=== PATIENT | male | born 1960 ===

== ENCOUNTER 2023-07-20 05:10 | Day surgery (SDC) | payer OTHER ==
[2023-07-20] MEDS ORDERED: PERCOCET 5-3251 EACH PO (10:08)
[2023-07-20] MEDS ORDERED: RECTICARE30 GM TOP (10:09)
== END 2023-07-20 20:40 | disposition home or self-care (01) ==
LOC: CIR.AMB 05:10
PROVIDERS: ATTEND Surgery
DX: K62.5 Hemorrhage of anus and rectum (principal); K64.8 Other hemorrhoids; K64.1 Second degree hemorrhoids; K64.4 Residual hemorrhoidal skin tags; R19.5 Other fecal abnormalities; Z88.2 Allergy status to sulfonamides; Z88.1 Allergy status to other antibiotic agents; Z20.822 Contact with and (suspected) exposure to COVID-19